=== PATIENT | female | born 1985 | race Two or more races ===

== ENCOUNTER 2019-07-08 09:51 | Emergency (ER) | payer OTHER ==
[~2019-07-08] VITALS: Ht 152.4 cm; Wt 68.0 kg
[~2019-07-08 09:51] MED LIST: PRENATAL CAPLE1 EACH PO; VALTREX1000 MG PO
== END 2019-07-08 13:59 | disposition home or self-care (01) ==
LOC: ER 09:51
DX: O26.892 Other specified pregnancy related conditions, second trimester (principal); E86.0 Dehydration; Z34.02 Encounter for supervision of normal first pregnancy, second trimester

== ENCOUNTER 2019-09-23 11:43 | Outpatient (CLI) | payer OTHER | END 2019-09-24 11:13 | disposition home or self-care (01) | LOC: OBS/DEL 11:43 | DX: O26.893 Other specified pregnancy related conditions, third trimester (principal); N20.0 Calculus of kidney ==

== ENCOUNTER 2019-11-22 09:54 | Inpatient (IN) | payer OTHER ==
[~2019-11-22] VITALS: Ht 152.4 cm; Wt 3.2 kg
[2019-11-22] MEDS ORDERED: VALTREX1000 MG PO (10:18)
== END 2019-11-25 15:22 | disposition home or self-care (01) | DRG 785 ==
LOC: LDR 09:54 → O/R 09:54 → OB/GYN 12:40
PROVIDERS: ADMIT Obstetrics & Gynecology
PROC: 0UB70ZZ Excision of Bilateral Fallopian Tubes, Open Approach (ICD-10-PCS; 2019-11-22)
PROC: 4A1HXCZ Monitoring of Products of Conception, Cardiac Rate, External Approach (ICD-10-PCS; 2019-11-22)
PROC: 4A033R1 Measurement of Arterial Saturation, Peripheral, Percutaneous Approach (ICD-10-PCS; 2019-11-22)
PROC: 10D00Z1 Extraction of Products of Conception, Low, Open Approach (ICD-10-PCS; principal; 2019-11-22 12:00)
DX: O32.2XX0 Maternal care for transverse and oblique lie, not applicable or unspecified (principal); Z30.2 Encounter for sterilization; Z3A.39 39 weeks gestation of pregnancy; Z37.0 Single live birth